=== PATIENT | male | born 1935 | race Caucasian/White ===

== ENCOUNTER → 2016-07-30 | Outpatient (CLI) | payer MEDICARE | LOC: LAB 10:28 | PROVIDERS: ATTEND Family Medicine | DX: E11.65 Type 2 diabetes mellitus with hyperglycemia (principal); R79.89 Other specified abnormal findings of blood chemistry | CPT/HCPCS: 36415; 82043; 83036 ==

== ENCOUNTER 2016-08-31 12:42 | Emergency (ER) | payer MEDICARE ==
[~2016-08-31] VITALS: Ht 172.7 cm; Wt 93.5 kg
[~2016-08-31 12:42] MED LIST: ASCO100T6; ASPI-504 PO; BENZ-13 PO; CHOL100048 PO; CIPR-273 PO; CLIN-78; CLOP75TA3; CLPD75T PO; DXZS4T PO; FNST5T PO; LEVO50TA10 PO; LVF500T PO; METF500T3 PO; METO50TA7 PO; NITR1PAT62 TD; OMEG1CAP61 PO; OMEP10CA2 PO; PANT20TA24 PO; PRAV40TA PO; RANI150C4 PO; SIMV40TA PO; SIMV40TA2 PO
[2016-08-31 14:56] VITALS: BP 164/90
--- NOTE | 2016-08-31 15:17 | Diagnostic Imaging Report ---
INDICATION: Fall, pain. COMPARISON: May 28, 2016 TECHNIQUE: 2 radiographs of the right clavicle dated August 31, 2016 FINDINGS: The acromioclavicular joint is unremarkable. No acute fracture or dislocation. No destructive osseous process. Tiny calcification superior to the glenoid is again identified, and stable. This could relate to calcific tendinitis or osteophyte formation. The minimally visualized right lung is clear. Mild degenerative changes in the glenohumeral joint. IMPRESSION: Stable examination without acute osseous abnormality. Mild degenerative changes again noted. Dictated by: Dictated on workstation # [id number]
--- NOTE | 2016-08-31 18:14 | Diagnostic Imaging Report ---
INDICATION: Fall, pain COMPARISON: 05/28/2016 TECHNIQUE: 2 radiographs of the right shoulder dated August 31, 2016 FINDINGS: The acromioclavicular joint is unremarkable. No acute fracture or dislocation. No destructive osseous process. Mild degenerative changes of the glenohumeral joint. Calcific density is identified just superior to the glenoid, stable from the prior examination. No suspicious radiopaque foreign body. IMPRESSION: No acute fracture with mild degenerative changes. Stable calcific density superior to the glenoid, which may relate to calcific tendinitis/bursitis or may simply relate to osteophyte formation. Dictated by: Dictated on workstation # [id number]
== END 2016-08-31 15:01 | disposition home or self-care (01) ==
LOC: ED 12:44
DX: S46.011A Strain of muscle(s) and tendon(s) of the rotator cuff of right shoulder, initial encounter (principal); W18.39XA Other fall on same level, initial encounter; Y92.007 Garden or yard of unspecified non-institutional (private) residence as the place of occurrence of the external cause
CPT/HCPCS: 73000; 73030; 99282; 99283